=== PATIENT | female | born 2000 | race Caucasian/White ===

== ENCOUNTER 2024-07-25 20:58 | Observation (INO) | payer OTHER ==
[2024-07-25 21:06] VITALS: BMI 39.9
[2024-07-25 22:29] VITALS: RESP 18; TEMP 97.9
[2024-07-26] MEDS: ELECTROLYTE-148 SOLN 1,000 ML IV ONE (01:05)
[2024-07-26] MEDS: ELECTROLYTE-148 SOLN 1,000 ML IV SCH (03:10)
[2024-07-26 04:00] VITALS: BP 127/77; PULSE 72
== END 2024-07-26 07:37 | disposition home or self-care (01) ==
LOC: JERFT 20:58 → JLDR 07-26 02:55
PROVIDERS: ADMIT Obstetrics & Gynecology; ATTEND Obstetrics & Gynecology
PROC: 3E0337Z Introduction of Electrolytic and Water Balance Substance into Peripheral Vein, Percutaneous Approach (ICD-10-PCS; principal; 2024-07-26)
DX: Z04.1 Encounter for examination and observation following transport accident (principal); Z3A.33 33 weeks gestation of pregnancy; M54.50 Low back pain, unspecified; V49.88XA Car occupant (driver) (passenger) injured in other specified transport accidents, initial encounter; Y93.89 Activity, other specified; Y92.410 Unspecified street and highway as the place of occurrence of the external cause
CPT/HCPCS: 59025; 76819-TC; 99285-25; G0378